=== PATIENT | male | born 1975 | race Caucasian/White ===

== ENCOUNTER → 2022-05-01 | Outpatient (CLI) | payer OTHER ==
[2022-05-01 12:39] VITALS: BP 132/90; PULSE 72; RESP 18
--- NOTE | 2022-05-01 13:10 | P.PAINPG ---
PQRS Measure Charge Sheet Comment: HISTORY OF PRESENT ILLNESS: 46 yr old male as a referral from Dr. Gupta presents today with severe and chronic LBP secondary to DDD, disc bulges and facet arthropathy for evaluation. Patient states his pain level is 5 out of 10 in intensity, localized to the mid to lower aspects of his lumbar spine, but escalates as high as 9 out of 10 in intensity with overactivity. Pain is achy and sore in character with a sharp shooting pain down the hips bilaterally in the feet. Bilateral feet also accompanied with on and off tingling. Pain is relieved with medications (Lyrica), topicals, ice, physical therapy for 1 month which ended in February 2022 due to lumbar surgery, daily home stretching regimen as tolerated, repositioning and rest. PMH: MDD/ Anxiety PSH: L5-S1 Discectomy w fusion (March 2022), Cholecystectomy, Colonoscopy, [place] Teeth Extraction SH: 5 pack / yr tobacco user, No ETOH abuse, No illicit drug use. Works as an international missionary. FH: HTN, NIDDM, Glaucoma All: See list Meds: See list REVIEW OF ORGAN SYSTEMS: CONSTITUTIONAL: No fevers or chills. No recent weight loss. NEUROLOGICAL: + numbness and tingling along the distal extremities. No seizure disorders or headaches. MUSCULOSKELETAL: + pain PSYCHIATRIC: Denies current depression or suicidal thoughts. Physical Examinations : Constitutional : Cooperative , not in acute distress . Neurologic : Cranial nerve II to XII intact. No focal neurological deficits. Psychiatric : alert & oriented x 3. Matching mood & appropriate affect. Judgment & insight intact. Musculoskeletal : Cervical Spine Motor strength in the deltoid and biceps: Normal right side. Normal Left side Motor strength biceps and the wrist extensors: Normal right side . Normal left side Motor strength in the triceps muscle: Normal right side. Normal left side Deep tendon reflexes: Normal at the biceps. Normal at Brachioradialis. Normal at triceps Vertebral body tenderness to deep palpation over Cervical facet loading test: positive bilaterally Spurling test: positive bilaterally Neck distraction test: positive bilaterally Dinah sign: positive bilaterally Lumbar spine Motor strength lower extremities ,thigh and legs 5/5 Right side , 5/5 Left side Deep tendon reflexes : Normal Knee Jerk. Normal Ankle Jerk Vertebral body tenderness over L5, S1 Lumbar facet Loading Test: positive Right / positive Left Range of motion of the lumbar spine Flexion 30 degrees, extension 10 degrees Straight Leg Raise test: Left/ Right positive at degree Corazon test: positive right / positive left. Severe tenderness over the Sacroiliac joint on the Right / Left sides Gaenslen test: positive bilaterally Seated flexion test: positive bilateral ly. Sacral spine : Severe tenderness over the Sacroiliac joint: right side / left side Range of motion: Flexion of the lumbar spine <60 degrees Range of motion: Extension of the lumbar spine <20 degrees Gaenslen's Test positive Milton's Test positive Corazon test: positive right side / left side Thigh Thrust Test Sacral Thrust Test Imaging: None on file Assessment/ Plan : Lumbar stenosis, Lumbar DDD Recommendation to follow home guided exercise regimen as directed by his PT before and after his surgery (March 2022). He admits he has a 2 mo supply of Lyrica at this time. He needs to travel internationally in a month, but when he returns, he would like refills of his medication. Narcotic agreement filed today 05/01/22. Pt is disinterested in any procedures at this time. All questions answered. I have spent greater than 30 minutes on patient care today. Dr Marcos was available by phone for the evaluation of this patient. The time was used to review the medical records including relevant urine studies and Prescription hi story (MAPs), review of the available imaging, evaluation and examination of the patient, coordination of care with the medical staff and if applicable referring physicians, as well as creation of the medical record - Pain Location Lower Back Non-Pharmacological Interventions: Chiropractic Treatment, Home Exercise, Ice, Physical Therapy, Position/Reposition, Stretching Pharmacological Interventions: PRN Medication, Scheduled Medication Home Medications: Ambulatory Orders FLUoxetine HCL [PROzac] 40 mg PO DAILY 05/01/22 Pregabalin [Lyrica] 75 mg PO BID 05/01/22 busPIRone HCl [Buspar] 10 mg PO BID 05/01/22 Controlled Substance Measures - Controlled Substance Measures Is patient prescribed a controlled substance at discharge?: No
== END ==
LOC: PNWHC3 11:58
PROVIDERS: ATTEND Specialist
DX: M54.2 Cervicalgia (principal); M48.061 Spinal stenosis, lumbar region without neurogenic claudication; M51.36 Other intervertebral disc degeneration, lumbar region; F41.9 Anxiety disorder, unspecified; I10 Essential (primary) hypertension; E11.9 Type 2 diabetes mellitus without complications; Z88.1 Allergy status to other antibiotic agents
CPT/HCPCS: 99202

== ENCOUNTER → 2025-01-03 | Outpatient (CLI) | payer OTHER ==
--- NOTE | 2025-01-03 22:41 | MR ---
EXAMINATION TYPE: MR knee RT wo con DATE OF EXAM: 01/03/2025 10:14 PM COMPARISON: 12/10/2024. CLINICAL INDICATION: Male, 49 years old with history of M23.91; PHH, Right knee pain. TECHNIQUE: Multi planar, multi sequence imaging was performed of the knee including: Triplane proton density fat-saturated images and T1-weighted imaging. No Gadolinium was given. IV Contrast: mL (none if empty) FINDINGS: Medial meniscus: Increased signal in the meniscal body that does not extend to the surface. Medial femorotibial cartilage: Intact Medial collateral ligament: Intact Lateral meniscus: Increased signal within the Lateral femorotibial cartilage: Intact Lateral collateral ligament complex: Intact Patellofemoral alignment: Normal Patellofemoral cartilage: Grade-III chondromalacia. Extensor mechanism: Intact. Joint/bursal fluid: Small joint effusion. Muscles/tendons: The patellar tendon, quadriceps tendon, IT band, pes anserinus tendons, semimembrano nilay tendon, popliteus tendon, and biceps femoris tendon are all within normal limits. Bone marrow: ; Bone edema within the posterior medial femoral condyle with some subtle cortical t hickening series 301 image 10 compared to the remainder of the femoral condyle and lateral femoral co ndyle. Bipartite patella. Anterior cruciate ligament: Intact. Posterior cruciate ligament: Intact. Soft tissues: A fabella is present. IMPRESSION: 1. Bony edema within the posterior medial femoral condyle with subtle subchondral sclerosis suggesti ng prior injury/subchondral fracture. No kissing contusion visualized. 2. ACL/PCL/MCL and LCL are intact. 3. Anatomic variant bipartite patella. [facility], , 01/03/2025 10:39 PM
== END | disposition home or self-care (01) ==
LOC: RADMRIMAIN 21:45
PROVIDERS: ATTEND Family Medicine
DX: M23.91 Unspecified internal derangement of right knee (principal); Q74.1 Congenital malformation of knee

== ENCOUNTER → 2025-01-05 | Outpatient (CLI) | payer OTHER ==
--- NOTE | 2025-01-06 08:10 | MR ---
EXAMINATION TYPE: MR cspine/lspine wo con DATE OF EXAM: 01/05/2025 9:26 PM COMPARISON: 12/10/2024. CLINICAL INDICATION: Male, 49 years old with history of M54.12, M54.41, Pain in neck that travels renea n left arm and fingers and pain in lower back TECHNIQUE: Multi planar, multi sequence imaging was performed utilizing: T1-weighted, T2-weighted, a nd turbo inversion recovery imaging of the cervical and lumbar spine. IV Contrast: mL (None, if empty) FINDINGS: CERVICAL: Alignment: The cervical vertebral bodies have preserved heights. Alignment is within normal limits gi kinjal patient positioning. Bones: Multilevel disc space narrowing and osteophyte formation with facet and uncovertebral joint ar thropathy worse at C5-C6. Cord: The spinal cord is unremarkable with regards to their signal intensity and morphology. Discs: Multilevel disc desiccation is present. C2-C3: No significant disc pathology. The spinal canal is patent. No neural foraminal stenosis. C3-C4: No significant disc pathology. The spinal canal is patent. No neural foraminal stenosis. C4-C5: No significant disc pathology. The spinal canal is patent. Bilateral facet and uncovertebral joint arthropathy are present with mild right neural foraminal stenosis. The left neural foramen is p atent. C5-C6: A disc osteophyte complex is present with mild to moderate spinal canal stenosis. Bilateral f acet and uncovertebral joint arthropathy are present with mild bilateral neural foraminal stenosis. C6-C7: A disc osteophyte complex is present with mild to moderate spinal canal stenosis. Bilateral f acet and uncovertebral joint arthropathy are present with moderate right and mild left neural foramin al stenosis. C7-T1: No significant disc pathology. The spinal canal is patent. No neural foraminal stenosis. Other: None. LUMBAR: Alignment: The lumbar vertebral bodies have preserved heights and alignment. Cord: The conus medullaris and the distal spinal cord appear unremarkable with regards to their signa l intensity and morphology. Bones/Discs: Discectomy at L5-S1 with hardware in place. Mild degeneration changes throughout the spi ne with osteophyte formation and facet joint arthropathy. Intervertebral disc signal is maintained. T12-L1: No evidence of significant spinal canal stenosis or neural foraminal stenosis. L1-L2: Left central protrusion with mild spinal canal stenosis/narrowing the ventral subarachnoid spa ce. The neural foramen are patent. This closely approximates the cauda equina nerves at this level on the left. L2-L3: No evidence of significant spinal canal stenosis or neural foraminal stenosis. L3-L4: No evidence of significant spinal canal stenosis or neural foraminal stenosis. L4-L5: No evidence of significant spinal canal stenosis or neural foraminal stenosis. L5-S1: The disc has a rounded posterior morphology without significant spinal canal stenosis. Facet j oint arthropathy with mild bilateral neural foraminal stenosis. No significant spinal canal or neural foraminal stenosis in the remainder of the visualized levels. Other findings: None. IMPRESSION: Cervical: Mild to moderate spinal canal stenosis at C5-C6 and C6-C7. Neural foramen stenosis worse at C6-C7 with moderate right neural foraminal stenosis. Lumbar spine: 1. L1-L2 left central disc extrusion which closely approximates the nerve roots at this level on the left. 2. No evidence for significant spinal canal stenosis. 3. Discectomy changes at L5-S1 with hardware in place. [facility], , 01/06/2025 8:07 AM
== END | disposition home or self-care (01) ==
LOC: RADMRIMAIN 20:45
PROVIDERS: ATTEND Family Medicine
DX: M48.02 Spinal stenosis, cervical region (principal); M99.71 Connective tissue and disc stenosis of intervertebral foramina of cervical region; M51.16 Intervertebral disc disorders with radiculopathy, lumbar region
CPT/HCPCS: 72141; 72148

== ENCOUNTER → 2025-02-08 | Outpatient (CLI) | payer OTHER ==
--- NOTE | 2025-02-08 12:14 | CA ---
Stress Echo Report Kyle Worthy Age: 49 Gender: M : 1975 Exam Date: 02/08/2025 10:24 Exam Location: [place] [facility] Ht (in): 69 Wt (lb): 200 Ordering Physician: Serafin Hassan MD Referring Physician: Mo CABRERA Culinary Intern: LORRIE, Technologist Procedure CPT: Indication: R07.89 other chest pain ICD-9 Codes: Rhythm: Patient History: Cardiac Medications: ATAVAN,,,,,, PAROXETINE,,,,, Medications in past 24 hours: Contrast: N/A Stress Results Protocol: Swapnil Total dose(mL): NA Exercise Duration (min:sec): 10:[address] Depression (mm): 0 Angina Score: 0 Granda Score: 10.5 METS: 11.9 Resting HR: 83 Resting BP: 114 / 79 Peak HR: 152 Peak BP: 145 / 102 Max Predicted HR: 171 89 % Max Predicted HR Target HR: 145 Double Product: [id number] Stress Summary: The patient's target heart rate was achieved BP Response: Reason for Termination: MAX EXERTION/TARGET HR Cardiac Symptoms: NO SYMPTOMS ECG Analysis Resting ECG: Normal sinus rhythm, normal ECG Stress ECG: No abnormal ST/T wave changes with exercise Arrhythmia: Occasional PVCs Echo Analysis Resting Echo: Normal resting echocardiogram. Peak Echo Analysis: Normal wall thickening and motion with decreased cavity size MEASUREMENTS (Male/Female) Normal Values CONCLUSIONS Patient falls into low-risk group (DTS >= +5). This associates the patient with an annual CV mortality <= 0.5%. Good exercise tolerance with normal electrocardiographic response to exercise Normal stress echocardiogram with no evidence of stress-induced ischemia Dr. Kayleen Huang MD (Electronically Signed) Final Date: 08 February 2025 12:13
== END | disposition home or self-care (01) ==
LOC: RADNMMAIN 09:44
PROVIDERS: ATTEND Family Medicine
DX: R07.89 Other chest pain (principal)
CPT/HCPCS: 93351

== ENCOUNTER → 2025-02-12 | Outpatient (CLI) | payer OTHER ==
[2025-02-12 14:27] LABS: DHEA Sulfate 53.8 UG/DL (34.5-568.9)
[2025-02-12 15:40] LABS: ALT 47 U/L (10-49); AST 26 U/L (14-35); Albumin 4.5 g/dL (3.8-4.9); Albumin/Globulin Ratio 1.96 Ratio (1.60-3.17); Alkaline Phosphatase 43 U/L (41-126); Calcium 10.1 mg/dL (8.7-10.3); Carbon Dioxide 26.2 mmol/L (21.6-31.8); Chloride 106 mmol/L (96-109); Chol/HDL Ratio 4.83 Ratio; Globulin 2.3 g/dL (1.6-3.3); Glucose 122 mg/dL (70-110); LDL Cholesterol,Calculated 118.3 mg/dL (0.0-131.0); Potassium 5.2 mmol/L (3.5-5.5); Sodium 141 mmol/L (135-145); Total Bilirubin 0.4 mg/dL (0.3-1.2); Total Protein 6.8 g/dL (6.2-8.2)
[2025-02-12 15:41] LABS: T4, Free (Free Thyroxine) 1.09 ng/dL (0.80-1.80)
[2025-02-12 16:34] LABS: Follicle Stimulating Hormone 1.6 mIU/mL; Luteinizing Hormone 1.1 mIU/mL
== END | disposition home or self-care (01) ==
LOC: LABWHC1 08:26
PROVIDERS: ATTEND Internal Medicine Endocrinology, Diabetes & Metabolism
DX: E29.9 Testicular dysfunction, unspecified (principal)
CPT/HCPCS: 36415; 80053; 80061; 82306; 82626; 82627; 83001; 83002; 83036; 84146; 84270; 84305; 84402; 84403; 84439; 84443